=== PATIENT | female | born 1975 | race Caucasian/White ===

== ENCOUNTER → 2018-01-23 | Outpatient (CLI) | payer OTHER ==
--- NOTE | 2018-01-26 14:41 | WOMENS IMAGING REPORT ---
EXAM DESCRIPTION: 3D SCREENING MAMMO BILAT COMPLETED DATE/TIME: 01/23/2018 10:30 am REASON FOR STUDY: SCREENING MAMMO Z12.31 ENCNTR SCREEN MAMMOGRAM FOR MALIGNANT NEOPLASM OF JACOB COMPARISON: 02/07/2015 TECHNIQUE: Standard craniocaudal and mediolateral oblique views of each breast recorded using digita l acquisition and breast tomosynthesis. LIMITATIONS: None. FINDINGS: Findings present which are benign by mammographic criteria. No suspicious masses, calcifi cations or architectural distortion. Pertinent benign findings: Benign bilateral breast parenchymal calcifications Read with the assistance of CAD. .[facility] - R2 Cenova Version 1.3 .[facility] Imaging - R2 Cenova Version 1.3 .[facility] - R2 Cenova Version 2.4 .[facility] – [place] - R2 Cenova Version 2.4 .[facility] - R2 Net Wpf Developer Version 9.2 Benign mammographic findings may include one or more of the following: Smooth masses, popcorn/rim/co arse calcifications, asymmetries, post-procedure changes, and lesions with long-standing stability. IMPRESSION: BENIGN MAMMOGRAPHIC FINDINGS. BIRADS 2 BREAST DENSITY: d. The breasts are extremely dense, which lowers the sensitivity of mammography. BIRAD: 2 BENIGN FINDING(S) RECOMMENDATION: RECOMMENDATION: ROUTINE SCREENING Please continue yearly bilateral screening tomosynthesis in January 2019 COMMENT: The patient has been notified of the results by letter per [place] requirements. Additional no tification policies are in place for contacting patient with suspicious or incomplete findings. Quality ID #[id number]: The [employer] recommends an annual screening mammogram for women aged 40 years or over. This facility utilizes a reminder system to ensure that all patients receive reminder letters, and/or direct phone calls for appointments. This includes reminders for routine scr eening mammograms, diagnostic mammograms, or other Breast Imaging Interventions when appropriate. Th is patient will be placed in the appropriate reminder system. The [employer] (ACR) has developed recommendations for screening MRI of the breast s in certain patient populations, to be used in conjunction with mammography. Breast MRI surveillanc e may be appropriate for women with more than 20% lifetime risk of developing breast cancer as deter mined by genetic testing, significant family history of the disease, or history of mantle radiation f or Hodgkins Disease. ACR Practice Guidelines 2008. DBT Technology DBT is a type of tomographic mammography. With conventional mammography, overlapping breast tissue ma y make lesions difficult to detect, even with good compression. DBT uses an x-ray tube that rotates a round the breast, taking images at different angles. These images are then combined to create thin sl ices of the breast that the radiologist can view as a 3D reconstruction. The [employer] unit can perform full-field digital mammograms (2D imaging); or DBT (3D imaging); or both, in a combination mode that quickly performs both the mammogram and the tomosynthesis scan while the breast is still compressed. PQRS 6045F: Fluoroscopic imaging is not utilized for breast tomosynthesis. TECHNICAL DOCUMENTATION: FINDING NUMBER: (1) ASSESSMENT: (1) JOB ID: [id number] [employer]- All Rights Reserved Reading location - IP/workstation name: [email or web address]
== END ==
LOC: WI 10:16
PROVIDERS: ATTEND Nurse Practitioner
DX: Z12.31 Encounter for screening mammogram for malignant neoplasm of breast (principal)
CPT/HCPCS: 77063; 77067

== ENCOUNTER 2019-09-02 00:52 | Emergency (ER) | payer BC, OTHER ==
[2019-09-02] MEDS ORDERED: NORMAL SALINE 1000 ML 1,000 ML IV ONE (01:27)
[2019-09-02] MEDS ORDERED: ACETAMINOPHEN 325 MG TABLET PO ONE (01:29)
--- NOTE | 2019-09-02 01:29 | ER Document Report ---
ED General - General Chief Complaint: Shortness Of Breath Stated Complaint: COUGH Time Seen by Provider: 09/02/19 01:02 Primary Care Provider: MERCED HAAS NP [Primary Care Provider] - Follow up as needed Notes: Patient is a 44-year-old female that comes emergency department for chief complaint of fever of 101.5 at home, generalized weakness, body aches, occasional cough, occasional discomfort and tightness in the center of her chest. Symptoms started 3 in the afternoon and worsened around 9 PM. She states she called her oncologist and he recommended she be evaluated especially for potential neutropenic fever, she is on oral chemotherapy for stage IV breast cancer with bony metastasis. She has a port in the left arm. Patient denies recent travel, sick contacts, current chest pain or shortness of breath, any current symptoms except body aches and weakness. Only other reported medical history is hiatal hernia repair and tonsillectomy. She is a former smoker, drinks rarely, denies recreational drugs. Her oncologist is with [facility] (Dr. Bhupinder Llanos) and she also follows with [facility]. Patient also notes she just finished Macrobid for a UTI. TRAVEL OUTSIDE OF THE [place] IN LAST 30 DAYS: No - Related Data Allergies/Adverse Reactions: No Known Allergies Allergy (Unverified 09/02/19 01:00) Past Medical History - General Information source: Patient - Social History Smoking Status: Former Smoker Frequency of alcohol use: Social Lives with: Family Family History: Reviewed & Not Pertinent Patient has suicidal ideation: No Patient has homicidal ideation: No Malignancy Medical History: Reports: Hx Breast Cancer - Stage IV breast cancer with bony metastasis GI Medical History: Reports: Hx Gastroesophageal Reflux Disease Past Surgical History: Reports: Hx Herniorrhaphy - Hiatal hernia, Hx Tonsillectomy - Immunizations Immunizations up to date: Yes Hx Diphtheria, Pertussis, Tetanus Vaccination: Yes Review of Systems - Review of Systems Constitutional: See HPI EENT: No symptoms reported Cardiovascular: See HPI Respiratory: See HPI Gastrointestinal: No symptoms reported Genitourinary: No symptoms reported Female Genitourinary: No symptoms reported Musculoskeletal: See HPI Skin: No symptoms reported Hematologic/Lymphatic: No symptoms reported Neurological/Psychological: No symptoms reported Physical Exam - Vital signs Vitals: Temp Pulse Resp BP Pulse Ox 99.5 F 105 H 17 117/63 94 09/02/19 00:57 09/02/19 00:57 09/02/19 00:57 09/02/19 00:57 09/02/19 00:57 - Notes Notes: GENERAL: Alert, interacts well. No acute distress. HEAD: Normocephalic, atraumatic. EYES: Pupils equal, round, and reactive to light. Extraocular movements intact. ENT: Oral mucosa moist, tongue midline. Oropharynx unremarkable. Airway patent. Nares patent, sinuses non-tender NECK: Full range of motion. Supple. Trachea midline. No lymphadenopathy. LUNGS: Clear to auscultation bilaterally, no wheezes, rales, or rhonchi. No respiratory distress. Non-tender chest wall. No tachypnea or signs of distress. HEART: Borderline tachycardia, normal rhythm, no murmur ABDOMEN: Soft, non-tender. Non-distended. Bowel sounds present in all 4 quadrants. GENITOURINARY: Deferred EXTREMITIES: Chemo-Port in the left medial arm. No surrounding erythema, tenderness, swelling. Moves all 4 extremities spontaneously. No edema, normal radial and dorsalis pedis pulses bilaterally. No cyanosis. BACK: no cervical, thoracic, lumbar midline tenderness. No saddle anesthesia, normal distal neurovascular exam. Moves all extremities in full range of motion. NEUROLOGICAL: Alert and oriented x3. Normal speech. Cranial nerves II through X II grossly intact. Strength 5/5 in all extremities. PSYCH: Normal affect, normal mood. SKIN: Slightly pale, no rash Course - Re-evaluation Re-evalutation: On evaluation patient is very mildly tachycardic, she has a soft abdomen, clear lungs, she is nontoxic in appearance. She did have a subjective fever at home but not here. CBC shows white blood cell count 5.2, neutrophils are actually slightly elevated, there is no neutropenia, there is mild thrombocytopenia. Chemistry nonspecific. Troponin negative. Chest x-ray unremarkable. EKG nonspecific. Urinalysis unremarkable. Influenza negative. Coronavirus test pending. I reevaluated patient. Patient is intermittently having shortness of breath, chest discomfort, she is not coughing on my evaluation. She is still mildly tachycardic. She is not dehydrated. Because of her symptoms, hypercoagulability with cancer, tachycardia, decision was made to proceed with CTA, discussed this at length with patient. CTA showing groundglass appearance which could be bronchiolitis, no PE, unremarkable otherwise. Delta troponin negative. 09/02/19 I called [phone], I was able to speak with Dr. Bhupinder Llanos, patient's oncologist. I discussed patient's symptoms, evaluation, and work-up in detail. He states patient can be called with the results of the coronavirus and cultures, at this point no additional recommendations, patient can be sent home with follow-up instructions and return precautions. I discussed in detail with patient, provided her with a copy of her CD/report, patient states appreciation and agreement. Patient has no symptoms on re-evaluation, heart rate in the 80s, blood pressure is 112/70, oxygen saturation 98% on room air. Patient stable and well-appearing at time of discharge. - Vital Signs Vital signs: Temp Pulse Resp BP Pulse Ox 99.0 F 105 H 14 112/70 98 09/02/19 04:46 09/02/19 00:57 09/02/19 06:01 09/02/19 06:01 09/02/19 06:01 - Laboratory Result Diagrams: 09/02/19 01:57 09/02/19 01:57 Laboratory results interpreted by me: 09/02/19 09/02/19 01:57 01:57 MCV 101 H MCH 36.0 H Plt Count 121 L Lymph % (Auto) 11.6 L Seg Neutrophils % 79.6 H Urine Ascorbic Acid 40 H - EKG Interpretation by Me Additional EKG results interpreted by me: EKG shows sinus tachycardia at a rate of 103, QTc 440, borderline left axis deviation. No T wave inversions or ST segment changes in consecutive leads. Discharge - Discharge Clinical Impression: Body aches, Chest discomfort, Shortness of breath Condition: Stable Disposition: HOME, SELF-CARE Additional Instructions: Your work-up tonight is reassuring. It is still quite possible that you have the coronavirus, please perform isolation precautions, see additional details listed below. You can take Tylenol, ibuprofen, etc. Rest, drink plenty of fluids. I spoke with your oncologist Dr. Llanos, please call him for close follow-up and additional management. You will be contacted with your coronavirus results, and you will be contacted for any concerning results on blood and urine cultures. Return if you worsen including spiking fevers, difficulty breathing, vomiting, passing out, or any other concerning or worsening symptoms. As a person under investigation for COVID-19, the [place] Department of Health and Human Services (divison on public health) advises you to adhere to the following guidance until your test results are reported to you. If your test result is positive, you will receive additional information from your provider and your local health department at that time. Remain at home until you are cleared by the health provider or public health authorities. Keep a log of visitors to your home, notify any visitors to your home of your isolation status. If you plan to move to a new address or leave the [facility], notify the local health department in your County. Call your Doctor or seek care if you have an urgent medical need. Before seeking medical care, call him to get instructions from the provider before arriving at the medical office, clinic, or hospital. Notify them that you are being tested for the virus (COVID-19) so that arrangements can be made, as necessary, to prevent transmission to others in the healthcare setting. Next, notify the local health department in your county. If a medical emergency arises and you need to call 911, inform the first responders that you are being tested for the virus that causes COVID-19. Next, notify the local health department in your county.
--- NOTE | 2019-09-02 02:31 | RADIOLOGY REPORT (SQ) ---
EXAM DESCRIPTION: XR CHEST 1 VIEW COMPLETED DATE/TME: 09/02/2019 01:27 CLINICAL HISTORY: 44 years, Female, shortness of breath, cough, fever, chemotherapy COMPARISON: None. NUMBER OF VIEWS: 1 TECHNIQUE: Portable chest LIMITATIONS: None. FINDINGS: The heart size is normal. The lungs are clear. No pneumothorax. Volume loss of the right hemithorax IMPRESSION: No acute cardiopulmonary process copyright 2010 [employer]- All Rights Reserved
[2019-09-02 02:45] LABS: ABSOLUTE LYMPHOCYTES (AUTO) 0.6 10^3/uL (0.5-4.7); ABSOLUTE MONOCYTES (AUTO) 0.4 10^3/uL (0.1-1.4); ABSOLUTE NEUT (AUTO) 4.1 10^3/uL (1.7-8.2); BASOPHILS % (AUTO) 0.1 % (0-2); EOSINOPHILS % (AUTO) 0.7 % (0-6); HEMATOCRIT 40.4 % (36.0-47.0); HEMOGLOBIN 14.4 g/dL (12.0-15.5); LYMPHOCYTES % (AUTO) 11.6 % (13-45); MEAN CORPUSCULAR HGB CONC 35.6 g/dL (32.0-36.0); MEAN CORPUSCULAR VOLUME 101 fl (80-97); PLATELET COUNT 121 10^3/uL (150-450); RED CELL DISTRIBUTION WIDTH 13.8 % (11.5-14.0); SEGMENTED NEUTROPHILS % (AUTO) 79.6 % (42-78); TOTAL CELLS COUNTED % (AUTO) 100 %; WHITE BLOOD COUNT 5.2 10^3/uL (4.0-10.5)
[2019-09-02 02:47] LABS: VENOUS BLOOD BASE EXCESS -1.4 mmol/L; VENOUS BLOOD PCO2 42.6 mmHg (35-63); VENOUS BLOOD PH 7.37 (7.30-7.42)
[2019-09-02 02:51] LABS: APPEARANCE,URINE CLOUDY; BILIRUBIN,URINE NEGATIVE (NEGATIVE); COLOR,URINE AMBER; GLUCOSE, URINE NEGATIVE (NEGATIVE); KETONES,URINE NEGATIVE (NEGATIVE); LEUKOCYTE ESTERASE,URINE NEGATIVE (NEGATIVE); NITRITE,URINE NEGATIVE (NEGATIVE); PROTEIN,URINE NEGATIVE (NEGATIVE); URINE SPECIFIC GRAVITY 1.014; UROBILINOGEN,URINE NEGATIVE mg/dL (<2.0)
[2019-09-02 02:54] LABS: INTERNATIONAL RATION (INR) 0.99; PROTHROMBIN TIME 13.1 SEC (11.4-15.4)
[2019-09-02 03:03] LABS: ALBUMIN 4.7 g/dL (3.5-5.0); ALKALINE PHOSPHATASE 56 U/L (38-126); ANION GAP 9 (5-19); ASPARTATE AMINO TRANSFERASE 19 U/L (14-36); BILIRUBIN,TOTAL 0.6 mg/dL (0.2-1.3); BLOOD UREA NITROGEN 12 mg/dL (7-20); CARBON DIOXIDE 24 mmol/L (22-30); CHLORIDE 105 mmol/L (98-107); GLUCOSE 100 mg/dL (75-110); POTASSIUM 3.8 mmol/L (3.6-5.0); TOTAL PROTEIN 7.9 g/dL (6.3-8.2)
[2019-09-02 03:04] LABS: A TYPE INFLUENZA AG NEGATIVE (NEGATIVE); B INFLUENZA AG NEGATIVE (NEGATIVE)
--- NOTE | 2019-09-02 05:02 | RADIOLOGY REPORT (SQ) ---
CLINICAL HISTORY: tachycardia, SOB, chest pain, cancer patient COMPARISON: None. TECHNIQUE: CT CHEST ANGIOGRAPHY WITHOUT THEN WITH IV CONTRAST on 09/02/2019 3:26 AM CDT. MIPS reconstructions were generated. This exam was performed according to our departmental dose-optimization program, which includes automated exposure control, adjustment of the mA and/or kV according to patient size and/or use of iterative reconstruction technique. MIP images were generated. FINDINGS: Thoracic aorta is normal in course and caliber without aneurysm or dissection. Pulmonary arteries are suboptimally opacified. There are no larger central filling defects. The heart is normal in size. There is no pericardial effusion. Intrathoracic lymph nodes are not enlarged. Left PICC line is in place. There is no pleural effusion, pleural thickening or pneumothorax. Central airways are patent. There are minimal bibasilar groundglass opacities. In the upper abdomen, spleen is enlarged measuring 15.7 cm. There are no acute osseous findings. No suspicious bony lesions. IMPRESSION: No aortic dissection or aneurysm. No large or central pulmonary embolus. Minimal bibasal groundglass opacities which may represent an infectious or inflammatory bronchiolitis versus drug reaction.
[2019-09-02 06:23] VITALS: BP 112/70
--- NOTE | 2019-09-02 07:19 | EKG REPORT ---
SEVERITY:- OTHERWISE NORMAL ECG - SINUS TACHYCARDIA : Confirmed by: Elijah Martinez MD 02-Sep-2019 07:18:21
== END 2019-09-02 07:14 | disposition home or self-care (01) ==
LOC: ER 00:52
DX: M79.10 Myalgia, unspecified site (principal); R06.02 Shortness of breath; R07.9 Chest pain, unspecified; R05 Cough; R50.9 Fever, unspecified; R53.1 Weakness; C50.919 Malignant neoplasm of unspecified site of unspecified female breast; Z79.899 Other long term (current) drug therapy; Z87.891 Personal history of nicotine dependence; Z20.828 Contact with and (suspected) exposure to other viral communicable diseases
CPT/HCPCS: 93005; 99285; 96360; 36415; 87040; 87086; 83605; 85025; 85610; 87635; 80053; 81001; 84484; 82803; 87804; 71045; 71275; 93010; J7030